=== PATIENT | female | born 1950 | race Caucasian/White ===

== ENCOUNTER 2018-04-03 04:32 | Emergency (ER) | payer MEDICARE ==
[~2018-04-03] VITALS: Ht 160 cm; Wt 77.0 kg
[2018-04-03] MEDS ORDERED: PERCOCET 5/325M1 TAB PO (05:53)
[2018-04-03 06:15] VITALS: BP 119/78
== END 2018-04-03 06:18 | disposition home or self-care (01) ==
LOC: ED 04:32
DX: S92.354A Nondisplaced fracture of fifth metatarsal bone, right foot, initial encounter for closed fracture (principal); E78.1 Pure hyperglyceridemia; X50.0XXA Overexertion from strenuous movement or load, initial encounter; Z90.5 Acquired absence of kidney

== ENCOUNTER 2020-04-17 23:44 | Emergency (ER) | payer MEDICARE ==
[~2020-04-17] VITALS: Ht 160 cm; Wt 75.0 kg
[~2020-04-17 23:44] MED LIST: PERCOCET 5/325M1 TAB PO
[2020-04-17] MEDS ORDERED: LEVOTHYROXIN100 MCG PO (23:59)
[2020-04-18] MEDS ORDERED: LEVO-T25 MCG PO (00:01)
[2020-04-18] MEDS ORDERED: NORVASC5 M1 PO (00:01)
[2020-04-18] MEDS ORDERED: SIMVASTATIN20 MG PO (00:02)
[2020-04-18 00:53] LABS: IMMATURE GRANULOCYTES 0.8 % (0.0-5.0); NEUT# 6.22 thou/uL (2.00-7.15)
[2020-04-18 01:02] LABS: ALBUMIN 4.9 g/dL (3.2-5.0); ALKALINE PHOSPHATASE 83 u/l (38-126); AMYLASE 85 u/l (30-110); ANION GAP 18 (6-22 (CALC)); BILIRUBIN, TOTAL 0.7 mg/dL (0.0-1.4); BUN 20 mg/dL (8-23); BUN/CREATININE RATIO 22 (12-20 (CALC)); CARBON DIOXIDE 22 mmol/l (22-30); CHLORIDE 102 mmol/l (95-108); CREATININE 0.9 mg/dL (0.5-1.0); GFR > 60 ML/MIN (>=60 (CALC)); GFR FOR AFR.AMER. > 60 ML/MIN (>=60 (CALC)); LIPASE 78 u/l (23-300); POTASSIUM 4.9 mmol/l (3.5-5.1); SGOT/AST 29 u/l (9-36); SODIUM 137 mmol/l (137-146); TOTAL PROTEIN 8.2 g/dL (6.3-8.2)
[2020-04-18 01:05] LABS: RED BLOOD COUNT 4.18 mill/uL (4.20-5.60)
[2020-04-18 01:06] LABS: HEMATOCRIT 37.8 % (37.0-47.0); MEAN CELL VOLUME 90.4 fL CALC (80.0-100.0); MEAN CORPUSCULAR HGB 31.1 pG CALC (26.0-32.0); MEAN CORPUSCULAR HGB CONC 34.4 g/dL CAL (32.0-36.0); RED CELL DISTRI WIDTH 12.8 % (11.5-15.5)
[2020-04-18] MEDS ORDERED: PHENERGAN25 MG RE (03:14)
[2020-04-18 03:20] VITALS: BP 106/70
== END 2020-04-18 03:20 | disposition home or self-care (01) ==
LOC: ED 23:44
PROVIDERS: Family Medicine
DX: K52.9 Noninfective gastroenteritis and colitis, unspecified (principal); Z20.822 Contact with and (suspected) exposure to COVID-19
CPT/HCPCS: Q9967